=== PATIENT | female | born 1985 | race Caucasian/White ===

== ENCOUNTER 2018-01-27 21:35 | Emergency (ER) | payer MEDICAID ==
[~2018-01-27] VITALS: Ht 157.5 cm; Wt 90.7 kg
[2018-01-27 21:43] VITALS: BP 146/85
[2018-01-27 22:36] LABS: Basophils # (auto) 0.1 uL; Basophils % (auto) 0.7 % (0.0-2.0); Eosinophils # (auto) 0.2 uL; Eosinophils % (auto) 2.5 % (0.0-7.0); Hematocrit 34.3 % (36.0-46.0); Hemoglobin 11.3 g/dL (12.2-16.2); Lymphocytes # (auto) 2.4 uL; Lymphocytes % (auto) 34.5 % (10.0-50.0); Mean Corpuscular Hemoglobin 27.5 pg (28.0-32.0); Mean Corpuscular Volume 83.5 fL (80.0-100.0); Monocytes # (auto) 0.4 uL; Monocytes % (auto) 5.1 % (0.0-12.0); Neutrophils % (auto) 57.2 % (37.0-80.0); Nucleated Red Blood Cells % 0.1 %; Platelet Count (auto) 278 10^3/uL (140-450); Red Cell Distribution Width 15.9 % (11.8-14.3)
[2018-01-27 22:52] LABS: Albumin 3.3 g/dL (3.4-5.0); BUN/Creatinine Ratio 12.7; Calcium 9.2 mg/dL (8.5-10.1)
[2018-01-27 22:53] LABS: INR 0.91 (0.9-1.15); Partial Thromboplastin Time 28.3 sec (22.64-33.71); Prothrombin Time 9.9 sec (9.37-12.3)
[2018-01-27 22:55] LABS: Bilirubin, Total 0.2 mg/dL (0.2-1.0); Total Protein 7.4 g/dL (6.4-8.2)
== END 2018-01-28 05:30 | disposition left against medical advice (07) ==
LOC: ER 21:35
DX: R10.30 Lower abdominal pain, unspecified (principal); M54.9 Dorsalgia, unspecified; Z53.21 Procedure and treatment not carried out due to patient leaving prior to being seen by health care provider
CPT/HCPCS: 36415; 76801; 76817; 80053; 84702; 85025; 85610; 85730

== ENCOUNTER 2018-01-28 17:22 | Emergency (ER) | payer MEDICAID, OTHER ==
[~2018-01-28] VITALS: Ht 157.5 cm; Wt 94.3 kg
[2018-01-28 19:39] VITALS: BP 127/96
== END 2018-01-28 19:11 | disposition home or self-care (01) ==
LOC: ER 17:22
DX: R10.9 Unspecified abdominal pain (principal); R53.1 Weakness

== ENCOUNTER 2019-02-11 16:57 | Emergency (ER) | payer MEDICAID ==
[~2019-02-11] VITALS: Ht 157.5 cm; Wt 108.9 kg
[2019-02-11 17:08] VITALS: BP 150/94
[2019-02-11 18:29] LABS: Urine Bacteria NONE SEEN /hpf (None Seen); Urine Blood 1+ /uL (Negative); Urine Mucus FEW (None Seen); Urine Specific Gravity 1.019 (1.001-1.035); Urine WBC 175 /hpf (0 - 5)
[2019-02-11] MEDS ORDERED: cefTRIAXone SOD 1,000 MG VL IM ONE (18:45)
[2019-02-11] MEDS ORDERED: PHENAZOPYRIDINE HCL 100 MG TAB PO ONE (18:45)
== END 2019-02-11 19:08 | disposition home or self-care (01) ==
LOC: ER 17:04
DX: N39.0 Urinary tract infection, site not specified (principal); K59.00 Constipation, unspecified
CPT/HCPCS: 74018; 81001; 81025; 96372; 99284; J0696